=== PATIENT | male | born 1945 | race Caucasian/White ===

== ENCOUNTER → 2017-01-26 | Outpatient (CLI) | payer OTHER ==
--- NOTE | 2017-01-29 20:13 | REP ---
MRI LIVER WITH AND WITHOUT CONTRAST: TECHNIQUE: Multiple sequences obtained in the axial and coronal planes prior to and following the intravenous administration of 20 mL of gadolinium. Correlation made with prior CT from [facility] in [place], [place] dated 06/09/2016. The liver is upper limits of normal in size measuring about 16.5 cm in length. Spleen is not enlarged. In the left lobe of the liver, there is again noted a nodule which follows fat signal on MR sequences. Diameter is approximately 2.7 cm and this appears unchanged compared to the prior CT scan. There is an adjacent nodule just to the right of the fat containing nodule, measuring 2.3 cm in diameter. Internal signal demonstrates an area which is hyperintense on T1 and hypointense on T2. It does not suppress on T1 FS images. This probably represents a hemorrhagic or proteinaceous cyst. Diameter is approximately 2.3 cm which is essentially unchanged since the prior CT scan. There is an adjacent segment peripherally in the lateral left lobe of the liver, which has the same dimensions as on the CT scan. Internally this segment demonstrates mildly dilated intrahepatic bile ducts in a segmental fashion, localized to this lateral segment. No other areas of intrahepatic biliary dilatation are seen. This could be due to a stricture of a segmental bile duct draining this portion of the liver. Other intraluminal lesion cannot be excluded. In the right lobe of the liver, there are two adjacent nodules. One is seen in the posterior dome of the liver and is subtly hypointense on T1 and hyperintense on T2. There is ring enhancement with the intravenous administration of gadolinium. Diameter is approximately 2.6 cm. This is seen on the prior CT scan and at that time, diameter is approximated to be 2.3 cm. Just anterior to that nodule, is a smaller nodule of similar signal and there is similar ring enhancement. The diameter is 2.2 cm. These ring enhancing lesions could represent malignant neoplasm. Gallbladder is significantly distended. Multiple varices are seen posteromedial to the stomach. Adrenals and pancreas appear unremarkable. Cysts are seen in the upper pole of each kidney. Mildly enlarged lymph node lateral to the pancreatic head measures 1.3 cm in short axis dimension, unchanged since the CT scan. IMPRESSION: Two ring-enhancing lesions in the posterior right lobe of the liver somewhat superiorly could represent malignant lesions. There appears to be a benign fat containing lesion possibly a lipoma in the left lobe of the liver with an adjacent also benign appearing lesion, which probably represents a hemorrhagic or proteinaceous cyst. In the lateral segment of the left lobe of the liver there is segmental intrahepatic biliary dilatation, possibly caused by a stricture or intraluminal segmental bile duct lesion. These abnormalities in the left lobe appear unchanged compared to the prior CT scan of 06/09/2016. The larger ring enhancing lesion in the right lobe is measuring slightly greater size than on the prior CT scan as discussed above. Signed by Valerio Paul MD 01/30/2017 05:13 P
== END ==
LOC: M PLARAD 10:11
PROVIDERS: ATTEND Nurse Practitioner
DX: C22.9 Malignant neoplasm of liver, not specified as primary or secondary (principal)
CPT/HCPCS: 74183; A9576

== ENCOUNTER → 2017-07-03 | Outpatient (CLI) | payer OTHER | LOC: M PLARAD 15:05 | DX: C22.0 Liver cell carcinoma (principal) | CPT/HCPCS: 74183 ==